=== PATIENT | male | born 1955 | race Caucasian/White ===

== ENCOUNTER → 2017-12-04 | Day surgery (SDC) | payer BC, OTHER ==
[2017-11-18 11:38] VITALS: Ht 195.6 cm; Wt 100.0 kg
[~2017-12-04] VITALS: Ht 195.6 cm; Wt 100.0 kg
[~2017-12-04] MED LIST: ASPCH81X PO; ATROPINE SULFATE 0.1 MG/ML 5ML SYR IV PRN; BUPR-83 PO; CYCL10TA6 PO; DICY10CA12 PO; EpHEDrine SULFATE INJ 50 MG/ML AMP IV PRN; LIDOCAINE HCL 2% 2 ML VIAL (20MG/ML) ONE; MELATAB2 PO; PROPOFOL IV EMULSION 10 MG/ML 20 ML VIAL IV ONE; SODIUM CHLORIDE 0.9% 500ML 500 ML IV ONE; TADA20TA PO; TRAZ50TA35 PO; ZNTT/150 PO; ZOLP10TA PO
--- NOTE | 2017-12-04 14:07 | Endo History and Physical ---
History & Physical Date of Service: Dec 04, 2017. Chief Complaint: Family history of colon cancer. Referring Physician: Dr. Chivo Perkins History of Present Illness 62 yo CM who presents for colonoscopy secondary to family history of colon cancer. Past Surgical History Hx Cardiac Surgery: Yes (CARDIAC ALBATION X 2) Hx Internal Defibrillator: No Hx Pacemaker: No Hx Abdominal Surgery: Yes (INGUINAL HERNIA) Hx of Implantable Prosthesis: No Hx Post-Op Nausea and Vomiting: No Hx Cancer Surgery: No Hx Thoracic Surgery: No Hx Orthopedic: Yes (LEFT ANKLE SX, LEFT ARM I&D (INFECTION)) Hx Urinary Tract Surgery: No Family History Colon CA Social History Smoking Status: Former Smoker Hx Substance Use: No Hx Alcohol Use: Yes (1 DRINK DAILY) Allergies Coded Allergies: Penicillins (Verified Allergy, Unknown, RASH, 11/18/17) Sulfa Antibiotics (Verified Allergy, Unknown, RASH, 11/18/17) Current Medications Reported Home Medications Medications Dose Route/Sig Max Daily Dose Days Date Category Dose Instructions Cialis (Tadalafil) 20 Mg Tab 20 Mg PO UD 11/18/17 Reported Ambien (Zolpidem Tartrate) 10 Mg Tab 10 Mg PO HS PRN 11/18/17 Reported Trazodone (Trazodone HCl) 50 Mg Tab 50 Mg PO HS PRN 11/18/17 Reported Melatonin Maximum Strengt (Melatonin) 5 Mg Tab 1 Tab PO HS 30 11/18/17 Reported Zantac (Ranitidine HCl) 150 Mg Tab 150 Mg PO QPM 11/18/17 Reported UNSURE IF DOSE IS CORRECT Dicyclomine Hcl 10 Mg Cap 1 Cap PO TID PRN 30 11/18/17 Reported Flexeril (Cyclobenzaprine Hcl) 10 Mg Tab 10 Mg PO TID PRN 11/18/17 Reported Wellbutrin (Bupropion HCl) 100 Mg Tab 100 Mg PO BID 11/18/17 Reported Aspirin Chewable (Aspirin) 81 Mg Chew 81 Mg PO QPM 11/18/17 Reported Vital Signs Weight (Kilograms): 100 Height (Feet): 6 Height (Inches): 5 Date Time Temp Pulse Resp B/P (MAP) Pulse Ox O2 Delivery O2 Flow Rate FiO2 12/04/17 13:48 36.6 79 18 128/79 (95) 95 Room Air Physical Exam General Appearance: WD/WN, no apparent distress Respiratory/Chest: Auscultation: breath sounds normal Cardiovascular: Heart Auscultation: RRR Abdomen: Bowel Sounds: normal Inspection & Palpation: soft, non-distended, no tenderness, guarding & rebound Assessment and Plan Assessment: 62 yo CM who presents for colonoscopy secondary to family history of colon cancer. Plan: Proceed with colonoscopy.
--- NOTE | 2017-12-04 15:17 | GI REPORT ---
Procedure Date: 12/04/2017 2:31 PM Procedure: Colonoscopy Indications: Family history of colon cancer in a first-degree relative Medicines: Monitored Anesthesia Care Complications: No immediate complications. Estimated Blood Loss: Estimated blood loss: none. Procedure: Pre-Anesthesia Assessment: - Prior to the procedure, a History and Physical was performed, and patient medications and allergies were reviewed. The patient's tolerance of previous anesthesia was also reviewed. The risks and benefits of the procedure and the sedation options and risks were discussed with the patient. All questions were answered, and informed consent was obtained. Prior Anticoagulants: The patient has taken aspirin, last dose was 1 day prior to procedure. ASA Grade Assessment: II - A patient with mild systemic disease. After reviewing the risks and benefits, the patient was deemed in satisfactory condition to undergo the procedure. After I obtained informed consent, the scope was passed under direct vision. Throughout the procedure, the patient's blood pressure, pulse, and oxygen saturations were monitored continuously. The scope was introduced through the anus and advanced to the terminal ileum. The colonoscopy was performed without difficulty. The patient tolerated the procedure well. The quality of the bowel preparation was good. The terminal ileum, ileocecal valve, appendiceal orifice, and rectum were photographed. Findings: The perianal and digital rectal examinations were normal. A 4 mm polyp was found in the sigmoid colon. The polyp was sessile. The polyp was removed with a cold snare. Resection and retrieval were complete. Non-bleeding internal hemorrhoids were found during retroflexion. The hemorrhoids were small. Impression: - One 4 mm polyp in the sigmoid colon, removed with a cold snare. Resected and retrieved. - Non-bleeding internal hemorrhoids. Recommendation: - Resume previous diet. - Continue present medications. - Repeat colonoscopy for surveillance based on pathology results. - Return to primary care physician as previously scheduled. Sam Butterfield, DO 12/04/2017 3:17:14 PM This report has been signed electronically. Note Initiated On: 12/04/2017 2:31 PM I attest to the content of the Intraoperative Record and orders documented therein, exceptions below
--- NOTE | 2017-12-04 15:20 | Discharge Instructions ---
Endoscopy Patient Instructions Date / Procedure(s) Performed Dec 04, 2017. Colonoscopy Allergy Information Coded Allergies: Penicillins (Verified Allergy, Unknown, RASH, 11/18/17) Sulfa Antibiotics (Verified Allergy, Unknown, RASH, 11/18/17) Discharge Date / Findings Dec 04, 2017. Colon polyp Internal hemorrhoids Medication Instructions Stopped Medication(s): last dose ASA last night 2200 OK to resume all medications today as prescribed Reported Home Medications Medications Dose Route/Sig Max Daily Dose Days Date Category Dose Instructions Cialis (Tadalafil) 20 Mg Tab 20 Mg PO UD 11/18/17 Reported Ambien (Zolpidem Tartrate) 10 Mg Tab 10 Mg PO HS PRN 11/18/17 Reported Trazodone (Trazodone HCl) 50 Mg Tab 50 Mg PO HS PRN 11/18/17 Reported Melatonin Maximum Strengt (Melatonin) 5 Mg Tab 1 Tab PO HS 30 11/18/17 Reported Zantac (Ranitidine HCl) 150 Mg Tab 150 Mg PO QPM 11/18/17 Reported UNSURE IF DOSE IS CORRECT Dicyclomine Hcl 10 Mg Cap 1 Cap PO TID PRN 30 11/18/17 Reported Flexeril (Cyclobenzaprine Hcl) 10 Mg Tab 10 Mg PO TID PRN 11/18/17 Reported Wellbutrin (Bupropion HCl) 100 Mg Tab 100 Mg PO BID 11/18/17 Reported Aspirin Chewable (Aspirin) 81 Mg Chew 81 Mg PO QPM 11/18/17 Reported Provider Instructions Activity Restrictions - No exercising or heavy lifting for 24 hours. - Do not drink alcohol the day of the procedure. - Do not drive a car or operate machinery until the day after the procedure. - Do not make any important decisions or sign important papers in 24 hours after the procedure. Following Day: - Return to full activity which may include returning to work/school. Diet Start your diet with liquids and light foods (jello, soup, juice, toast). Then eat your usual diet if not nauseated. Treatment For Common After Affects For mild abdominal pain, bloating, or excessive gas: - Rest - Eat lightly - Lie on right side Follow-Up Information Follow-up with Dr. Chivo Perkins as scheduled Anesthesia Information What You Should Know You have had a procedure that required some medicine to reduce anxiety and discomfort. This treatment is called moderate sedation. After receiving the treatment, you may be sleepy, but you will be able to breathe on your own. The effects of the treatment may last for several hours. Follow these instructions along with Activity/Diet recommendations noted above: * Do NOT do anything where dizziness or clumsiness would be dangerous. * Rest quietly at home today, then you can be up and about tomorrow. * Have a responsible person stay with you the rest of today. * You may have had an I.V. today. If so, you may take the dressing off later today. Recommendations Call your doctor if: * Trouble breathing * Continuous vomiting for more than 24 hours * Temperature above 101 degrees * Severe abdominal pain or bloating * Pain not relieved by pain medicine ordered * There is increased drainage or redness from any incision * A large amount of rectal bleeding greater than 2-3 tablespoons. (If you had a polyp/s removed or have hemorrhoids, a small amount of blood - from the rectum is to be expected.) * You have any unanswered questions or concerns. IN THE EVENT OF A SERIOUS EMERGENCY, GO TO THE NEAREST EMERGENCY ROOM Your discharge instructions were prepared by provider Sam Butterfield. Patient Instructions Signature Page Lamin Donohue Patient (or Guardian) Signature/Date: I have read and understand the instructions given to me by my caregivers. Caregiver/RN/Doctor Signature/Date: The above-named patient and/or guardian has received patient instructions on this date. + Original Patient Signature Page (only) stays with chart. Please make copy for patient.
--- NOTE | 2017-12-04 15:45 | Anesthesiology Progress Note ---
Anesthesia Post Op Note Date & Time Dec 04, 2017 at 15:45 Vital Signs Pain Intensity: 0 Vital Signs Past 12 Hours Date Time Temp Pulse Resp B/P (MAP) Pulse Ox O2 Delivery O2 Flow Rate FiO2 12/04/17 15:31 68 18 132/70 (90) 96 Room Air 12/04/17 15:15 74 18 110/67 (81) 92 Room Air 12/04/17 13:48 36.6 79 18 128/79 (95) 95 Room Air Notes Mental Status: alert / awake / arousable, participated in evaluation Pt Amnestic to Procedure: Yes Nausea / Vomiting: adequately controlled Pain: adequately controlled Airway Patency, RR, SpO2: stable & adequate BP & HR: stable & adequate Hydration State: stable & adequate Anesthetic Complications: no major complications apparent
[2017-12-04 15:46] VITALS: BP 136/78; PULSE 72; O2SAT 96
== END | disposition home or self-care (01) ==
LOC: C.GI 13:28
PROVIDERS: ATTEND Internal Medicine
DX: Z12.11 Encounter for screening for malignant neoplasm of colon (principal); D12.5 Benign neoplasm of sigmoid colon; K64.8 Other hemorrhoids; Z88.0 Allergy status to penicillin; Z88.2 Allergy status to sulfonamides; Z80.0 Family history of malignant neoplasm of digestive organs; Z98.890 Other specified postprocedural states; Z87.891 Personal history of nicotine dependence